=== PATIENT | male | born 1975 | race Caucasian/White ===

== ENCOUNTER → 2019-02-23 | Outpatient (CLI) | payer OTHER | LOC: OD 09:42 | PROVIDERS: ATTEND Otolaryngology | DX: J30.9 Allergic rhinitis, unspecified (principal) | CPT/HCPCS: 36415; 82785; 86003 ==

== ENCOUNTER → 2019-04-17 | Outpatient (CLI) | payer OTHER ==
--- NOTE | 2019-04-17 14:49 | RADIOLOGY REPORT (SQ) ---
EXAM DESCRIPTION: CT SINUSES FOR ENT COMPLETED DATE/TIME: 04/17/2019 2:20 pm REASON FOR STUDY: J33.9 NASAL POLYP, UNSPECIFIED J33.9 NASAL POLYP, UNSPECIFIED COMPARISON: None. TECHNIQUE: Noncontrast scanning through the paranasal sinuses using bone algorithm. Reconstructed MPR images reviewed. All images stored on PACS. All CT scanners at this facility use dose modulation, iterative reconstruction, and/or weight based d osing when appropriate to reduce radiation dose to as low as reasonably achievable (ALARA). [facility]: Dose Right [facility]: CareDose [facility]: Dose Right [facility]: Teradose 4D [facility]: Smart Shoka.me RADIATION DOSE: mGy. LIMITATIONS: None. FINDINGS: SINUSES: There is mucosal thickening in both maxillary sinuses. There are retention cyst or polyps present as well. There is bilateral opacification within the ethmoid air cells again consi stent with mucosal thickening or polyps. There is disease in the sphenoid sinus with mucosal thicken ing bilaterally in a small retention cyst or polyp on the left. There is a small amount of disease i n the right frontal sinus. NASAL CAVITY: The septum is deviated slightly toward the right. Both ostiomeatal units are occluded. BONES: Normal mineralization. No fracture or bone lesion. ORBITS: Intact, symmetric globes. No retroorbital mass. TMJS: Normal. MASTOIDS: Clear. IACs symmetric, grossly normal. INFERIOR BRAIN: Limited view. No acute findings. OTHER: No other significant finding. IMPRESSION: Pansinusitis. Occlusion of both ostiomeatal units. TECHNICAL DOCUMENTATION: JOB ID: [id number] Quality ID # [id number]: Final reports with documentation of one or more dose reduction techniques (e.g., Au tomated exposure control, adjustment of the mA and/or kV according to patient size, use of iterative reconstruction technique) 2010 [employer]- All Rights Reserved Reading location - IP/workstation name: [email or web address]
== END ==
LOC: RAD 14:07
PROVIDERS: ATTEND Otolaryngology
DX: J33.9 Nasal polyp, unspecified (principal); J32.4 Chronic pansinusitis; J34.2 Deviated nasal septum
CPT/HCPCS: 70486

== ENCOUNTER 2019-05-30 06:40 | Day surgery (SDC) | payer OTHER ==
[2019-05-30] MEDS ORDERED: ONDANSETRON HCL INJ/PF 4 MG/2 ML SDV ONE (06:44)
[2019-05-30] MEDS ORDERED: FENTANYL CITRATE INJ/PF 250 MCG/5 ML AMPULE ONE (06:44)
[2019-05-30] MEDS ORDERED: MIDAZOLAM 2 MG/2 ML INJ ONE (06:44)
[2019-05-30] MEDS ORDERED: ACETAMINOPHEN 1,000 MG/100 ML RTUPB IV ONE (06:45)
[2019-05-30] MEDS ORDERED: DEXMEDETOMIDINE INJ 80 MCG/20 ML VIAL IV ONE (06:45)
[2019-05-30] MEDS ORDERED: DEXAMETHASONE SOD PHOS INJ 10 MG/1 ML VIAL ONE (06:45)
[2019-05-30] MEDS ORDERED: PROPOFOL INJ 200 MG/20 ML VIAL IV ONE (06:46)
[2019-05-30] MEDS ORDERED: CEFAZOLIN 2 GM/D5W RTU 2 GM/50 ML RTUPB IV ONE (06:50)
[2019-05-30] MEDS ORDERED: COCAINE HCL 4% TOPICAL SOLN 4 ML ONE (07:00)
[2019-05-30] MEDS ORDERED: TRIAMCINOLONE ACETONIDE INJ 40 MG/1 ML VIAL ONE ×3 (07:00→07:54)
[2019-05-30] MEDS ORDERED: OXYMETAZOLINE HCL 0.05% NASAL SPRAY 15 ML BOTTLE ONE (07:00)
[2019-05-30] MEDS ORDERED: LIDOCAINE 2%/EPINEPHRINE INJ 1.7 ML CARTRIDGE ONE ×2 (07:00→09:34)
[2019-05-30] MEDS ORDERED: BACITRACIN ZINC OINTMENT 15 GM ONE (07:00)
--- NOTE | 2019-05-30 10:16 | Operative Report ---
Operative Report-[facility] Operative Report: Date: 30 May 2019 History: Patient with history of bilateral nasal polyposis, confirmed by CT scan. Presents today for an endoscopic sinus surgery, nasal polypectomy and possible nasal septoplasty. Informed consent was obtained from the patient. Preoperative Diagnosis: 1. Nasal Polyposis 2. Chronic Sinusitis 3. Deviated Nasal Septum Postoperative Diagnosis: Same as above Procedure: 1. Rigid Nasal Endoscopy, right side 2. Rigid nasal endoscopy, left side 3. Nasal polypectomy, right side 4. Nasal polypectomy, left side 5. Maxillary antrostomy, right side 6. Maxillary antrostomy, left side 7. Removal mass from the maxillary sinus, right side 8. Removal mass from the maxillary sinus, left side 9. Anterior ethmoidectomy, right side 10. Anterior ethmoidectomy, left side 11. Use of image guidance Anesthesia: MARIMAR Description of the procedure: After receiving informed consent, the patient was taken to the operating room and placed supine on the operating room table. After successful reduction and intubation by anesthesia, cottonoids saturated with 4% cocaine were placed into each nasal cavity for approximately 5 minutes. The cottonoids were withdrawn and the nasal septum, middle turbinate and nasal polyps were injected with 2% Xylocaine with 100,000 epinephrine. The cottonoids were replaced. The image guidance system was calibrated to the patient and found to be functioning normally. The patient was then prepped and draped in a sterile fashion. The image guidance instrumentation was also calibrated to the system and found to be functioning. Cottonoids were removed from the left side side. Rigid nasal endoscope was inserted into the nasal cavity and the polyps and lateral nasal wall were injected with 2% Xylocaine 100,000 epinephrine. The microdebrider was used to perform the nasal polypectomy. The polyps extended within the middle meatus posteriorly to the choana. Large polyp was noted within the maxillary sinus.. Seeker was placed in the infundibulum and the uncinate process was displaced anteriorly. An uncinectomy was performed using a Blakesley forceps and microdebrider. An olive-tipped suction was used to gain entrance into the maxillary sinus through the natural os. The natural os was then widened anteriorly, using backbiters and inferiorly and posteriorly using microdebrider. A polyp was noted within the maxillary sinus and this was successfully removed. The mucosa within the maxillary sinus revealed mild edema. The maxillary sinus was irrigated with normal saline using the vortex system. Blakesley forceps and microdebrider were used to perform an ethmoidectomy. An Afrin saturated cottonoid was placed into the middle meatus. A similar procedure was performed on the right side. A large polyp was removed from the maxillary sinus on this side as well. The maxillary sinus mucosa also revealed mild edema. The maxillary sinus was irrigated with normal saline using the vortex system The cottonoid was removed from the left middle meatus and keeping the middle turbinate medialized, and absorbable pack was placed into the middle meatus. This pack was then infiltrated with Kenalog 40. Similar procedure was performed on the right side. The patient was then given back to anesthesia who successfully extubated the patient without any complications. Estimated blood loss: 50 mL Fluids: 800 mL The patient was then transported to the post anesthesia care unit in stable condition with spontaneous respirations. No complications.
[2019-05-30] MEDS ORDERED: HYDROCODONE/ACETAMINOPHEN 5-325 MG TABLET ONE (10:42)
== END 2019-05-30 11:21 | disposition home or self-care (01) ==
LOC: SC 06:40
PROVIDERS: ATTEND Otolaryngology
DX: J33.9 Nasal polyp, unspecified (principal); J33.0 Polyp of nasal cavity; J34.2 Deviated nasal septum; J32.9 Chronic sinusitis, unspecified; J30.9 Allergic rhinitis, unspecified
CPT/HCPCS: 88305 ×2; 31254; 31256; 31237; J2250; J3490 ×4; J3010; J2405; J3301; J2704; J1100; J0690; J0131; 160